=== PATIENT | male | born 2000 | race Caucasian/White ===

== ENCOUNTER 2025-05-14 13:15 | Emergency (ER) | payer SELFPAY ==
[2025-05-14] MEDS: Ketorolac 30 MG/ML SDV IM ONE (13:53)
[2025-05-14] MEDS: Diphtheria,Pertussis(Acell),Tetanus Vaccine 0.5 ML Syringe IM ONE (13:56)
== END 2025-05-14 15:02 | disposition home or self-care (01) ==
LOC: JP.ED 13:15
DX: T23.232A Burn of second degree of multiple left fingers (nail), not including thumb, initial encounter (principal); Z88.2 Allergy status to sulfonamides; X08.8XXA Exposure to other specified smoke, fire and flames, initial encounter; Z23 Encounter for immunization
CPT/HCPCS: 16020; 90471; 90715; 96372; 99283; A9270; J1885